=== PATIENT | female | born 1990 | race Caucasian/White ===

== ENCOUNTER 2016-05-24 02:20 | Inpatient (IN) | payer OTHER ==
[~2016-05-24] VITALS: Ht 175.3 cm; Wt 97.7 kg
[2016-05-24] MEDS ORDERED: LACTATED RINGER'S 1000ML 500 ML IV ONE (02:58)
[2016-05-24] MEDS ORDERED: LACTATED RINGER'S 1000ML 1,000 ML IV SCH ×2 (02:58→03:35)
[2016-05-24 03:15] VITALS: Ht 175.3 cm; Wt 97.7 kg
[2016-05-24] MEDS ORDERED: PENICILLIN G POTASSIUM IV 3 MU in DEXTROSE 5% 100ML 100 ML IV PRN (03:45)
[2016-05-24] MEDS ORDERED: PENICILLIN G POTASSIUM IV 6 MU in DEXTROSE 5% 250ML 250 ML IV ONE (03:45)
[2016-05-24] MEDS ORDERED: MAGNESIUM SULFATE 4GM / WTR 100ML IV ONE (03:50)
[2016-05-24 03:56] LABS: HEMATOCRIT 35.1 % (37-47); MEAN CELL VOLUME 96.7 fL (80-100); MEAN CORPUSCULAR HEMOGLOBIN 33.9 pg (25-34); MEAN PLATELET VOLUME 11.7 fL (7.4-10.4); PLATELET COUNT 155 K/uL (130-400); RED BLOOD COUNT 3.63 M/uL (4.2-5.4); WHITE BLOOD COUNT 6.13 K/uL (4.8-10.8)
[2016-05-24] MEDS ORDERED: MAGNESIUM SULFATE / WTR 1,000 ML IV SCH (04:15)
[2016-05-24 04:22] LABS: INR 0.9 (0.9-1.1); PARTIAL THROMBOPLASTIN RATIO 1.3; PROTHROMBIN TIME (PATIENT) 9.8 SECONDS (9.0-12.0)
[2016-05-24] MEDS ORDERED: BETAMETH SOD PHOS/ACETATE IA 6 MG/ML IM ONE (04:30)
[2016-05-24 04:54] LABS: CALCIUM 8.4 mg/dl (8.5-10.1); CREATININE 0.68 mg/dl (0.60-1.20); POTASSIUM 3.7 mmol/L (3.5-5.1)
[2016-05-24] MEDS ORDERED: BUPIVACAINE 0.25% 30 ML VIAL ONE (05:04)
[2016-05-24] MEDS ORDERED: FENTANYL 2MCG/ML ROPIV 1.25MG/ML 100ML BAG EPI ONE (05:04)
[2016-05-24] MEDS ORDERED: EpHEDrine SULFATE INJ 50 MG/ML AMP ONE (05:04)
[2016-05-24] MEDS ORDERED: FENTANYL CITRATE INJ 50 MCG/1 ML 2 ML VIAL ONE (05:05)
--- NOTE | 2016-05-24 05:33 | Medical Consult ---
Consultation Date of Consultation: May 24, 2016. Attending Physician: Katina Cano M.D. Reason for Consultation: Opiate addiction History of Present Illness Destiny Lauren is a 25 yo female with opiate addiction who presented to [facility] today in labor. She reportedly takes massive amounts of Percocet daily, though when quantified she reports over the last year she takes 4-5 oxycontin 30mg tablets per day, and more when it is available. She usually snorts this, and occasionally takes it by mouth. Last opiate use was the AM of 05/23. She also used cocaine yesterday, but reports that was the only time she has used cocaine. Her history is vague but she should be about 35+5 weeks . She reportedly had care at [facility]. It was attempted for the patient to be transferred to an external facility but there was no available transport. Medicine was consulted for opiate dependence for after she delivers. She is just received an epidural, and is receiving fentanyl through it. She reports feeling concerned that she is withdrawing from opiates. She reports she has chills and feels like she has a loose bowel movement. She denies any headache, feeling sweaty, or any other symptoms. She is occasionally having contractions. Past Medical/Surgical History PMHx: 1. Opiate addiction 2. 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 Social History Illicit substance use as above over the last 4 years on and off, but constantly over the last year prior to her . Denies any alcohol or tobacco use. Smoking Status: Unknown if Ever Smoked Allergies Coded Allergies: No Known Allergies (Unverified , 05/24/16) Current Inpatient Medications Current Inpatient Medications Medications (Trade) Dose Ordered Sig/Suzi Route Start Time Stop Time Status Last Admin Dose Admin Lactated Ringer's 1,000 ml @ 125 mls/hr Q8H IV 05/24/16 02:58 06/23/16 02:57 Lactated Ringer's 1,000 ml @ 125 mls/hr Q8H IV 05/24/16 03:35 05/26/16 03:34 05/24/16 03:35 125 MLS/HR Magnesium Sulfate 1,000 ml @ 50 mls/hr Q20H IV 05/24/16 04:15 06/23/16 04:14 Penicillin G Potassium/Dextrose (Penicillin G Potassium IV/D5 100ml) 106 ml @ 100 mls/hr Q4H PRN IV 05/24/16 03:45 05/26/16 03:44 Review of Systems A 10 point review of systems was completed and negative unless otherwise noted in HPI. Physical Exam VS - per EMR General Appearance: WD/WN, + mild distress Head: normocephalic, atraumatic Eyes: PERRL, + pertinent finding (midrange pupils.) ENT: hearing grossly normal Neck: supple, no JVD Respiratory/Chest: lungs clear, normal breath sounds, no respiratory distress Cardiovascular: regular rate, rhythm, no murmur, normal peripheral pulses Abdomen/GI: + pertinent finding (gravid) Neurologic/Psych: alert, normal mood/affect, oriented x 3 Skin: no rash Laboratory Results Last 24 Hours Test 05/24/16 00:00 05/24/16 03:17 05/24/16 03:35 05/24/16 04:04 Rubella IgG Antibody IMMUNE White Blood Count 6.13 K/uL Red Blood Count 3.63 M/uL Hemoglobin 12.3 g/dL Hematocrit 35.1 % Mean Corpuscular Volume 96.7 fL Mean Corpuscular Hemoglobin 33.9 pg Mean Corpuscular Hemoglobin Concent 35.0 g/dl RDW Standard Deviation 45.1 fL RDW Coefficient of Variation 13.3 % Platelet Count 155 K/uL Mean Platelet Volume 11.7 fL Prothrombin Time 9.8 SECONDS Prothromb Time International Ratio 0.9 Activated Partial Thromboplast Time 34.1 SECONDS Partial Thromboplastin Ratio 1.3 Sodium Level 141 mmol/L Potassium Level 3.7 mmol/L Chloride Level 107 mmol/L Carbon Dioxide Level 24 mmol/L Anion Gap 10.0 mmol/L Blood Urea Nitrogen 5 mg/dl Creatinine 0.68 mg/dl Est Creatinine Clear Calc Drug Dose 156.0 ml/min Estimated GFR () 139.9 Estimated GFR (Non- 120.7 BUN/Creatinine Ratio 7.0 Random Glucose 91 mg/dl Calcium Level 8.4 mg/dl Total Bilirubin 0.4 mg/dl Direct Bilirubin 0.1 mg/dl Aspartate Amino Transf (AST/SGOT) 16 U/L Alanine Aminotransferase (ALT/SGPT) 17 U/L Alkaline Phosphatase 179 U/L Total Protein 6.6 gm/dl Albumin 2.5 gm/dl Assessment & Plan Documented By: Mervin Byronmateuszinez 25 yo female in active labor, with opiate addiction - primarily with long acting oxycontin 4-5x per day. However, since she usually snorts this medication it is unable to be quantified into morphine equivalents, so post- this will likely need to be titrated. Recommendations: Urine drug screen and acetaminophen level. For long acting opiate medication, would start with oxycontin 20mg TID. For breakthrough symptoms/pain, would use oxycodone IR 5mg q4h PRN. We will make recommendations on adjustment of medications accordingly. Thank you for allowing us to participate in the care of this patient. We will continue to follow. Resident Physician Supervision Note: I was present with [Name of resident] during the history and exam. I discussed the case with the resident and agree with the findings and plan as documented in the note. Any exceptions or clarifications are listed here: Pt seen/examined We are requested to consult for opiate withdrawal as the pt stets she is currently symptomatic. She is in labor and had received an epidural prior to exam. She states that she snorts 4-5 20mg oxymorphone daily Plan As she is delivering we would recommend she receive opiates which can be tapered or substituted We will recommend oxymorphone 20mg TID in addition to oxy IR 5mg q4H PRN This can be titrated as needed Discussed with OBGYN attending Resident Tracking Resident Involvement: Resident Care Provided Care Provided: Adult Hospital Medicine
[2016-05-24] MEDS ORDERED: NALBUPHINE HCL INJ 10 MG/ML AMP IV PRN (05:45)
[2016-05-24] MEDS ORDERED: EpHEDrine SULFATE INJ 50 MG/ML AMP IV PRN (05:45)
[2016-05-24] MEDS ORDERED: LACTATED RINGER'S 1000ML 500 ML IV PRN (05:45)
[2016-05-24] MEDS ORDERED: ONDANSETRON INJ 2 MG/ML 2 ML VIAL IV PRN (05:45)
[2016-05-24] MEDS ORDERED: NALOXONE HCL INJ 0.4 MG/1 ML VIAL/CARP IV PRN (05:45)
[2016-05-24] MEDS ORDERED: DiphenhydrAMINE HCL 50 MG/ML VIAL IV PRN (05:45)
[2016-05-24] MEDS ORDERED: FENTANYL 2MCG/ML ROPIV 1.25MG/ML 100ML BAG EPI PRN (05:45)
[2016-05-24 06:53] LABS: BENZODIAZEPINE, URINE NEG (NEG); COCAINE,URINE POS (NEG); PHENCYCLIDINE, URINE NEG (NEG)
[2016-05-24] MEDS ORDERED: OXYTOCIN 30 UNITS/500ML NSS IV ONE (08:00)
[2016-05-24] MEDS ORDERED: LANOLIN OINT EXT PRN ×2 (08:45)
[2016-05-24] MEDS ORDERED: HYDROCORTISONE ACETATE 25 MG SUPP PR PRN (08:45)
[2016-05-24] MEDS ORDERED: SUPERCREAM 0.870 % 15GM JAR EXT PRN (08:45)
[2016-05-24] MEDS ORDERED: BENZOCAINE 20% AER SPR 82.5 GM CAN EXT PRN (08:45)
[2016-05-24] MEDS ORDERED: OXYTOCIN 30 UNITS/500ML NSS IV PRN (08:45)
[2016-05-24] MEDS: OXYCODONE HCL IR 5 MG TAB (IMMEDIATE RELEASE) PO PRN ×4 (09:55→21:05)
--- NOTE | 2016-05-24 10:08 | Anesthesia Procedure Note ---
Anesthesia Epidural Removal Nt Date & Time May 24, 2016 at 10:07 Vital Signs Pain Intensity: 8.0 Notes Mental Status: alert / awake / arousable, participated in evaluation Nausea / Vomiting: adequately controlled Pain: adequately controlled Airway Patency, RR, SpO2: stable & adequate BP & HR: stable & adequate Hydration State: stable & adequate Neuraxial Anesthesia: was administered Anesthetic Complications: no major complications apparent, pt satisfied with anesthetic care Epidural: removed without complications, with tip intact
--- NOTE | 2016-05-24 10:09 | DELIVERY SUMMARY ---
DATE OF OPERATION: 05/24/2016 DELIVERY SUMMARY DATE OF DELIVERY: 05/24/2016. PRE-DELIVERY DIAGNOSES: 1. 25-year-old G3,P1-1-0-1 at 35 weeks, 5 days based off of patient report of 22 week ultrasound. 2. labor. 3. History of multidrug abuse. 4. History of section x1 followed by successful vaginal delivery. 5. 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 POST DELIVERY DIAGNOSES: Same. PROCEDURE: Spontaneous vaginal delivery and repair of bilateral sulcal tears and right periurethral tear. SURGEON: Dr. Eve Brown. ESTIMATED BLOOD LOSS: 300 mL. FINDINGS: Viable male with Apgars of 1 at 1 minute, 2 at 5 minutes, 3 at 10 minutes, 6 at 15 minutes and 8 at 20 minutes. Weight is pending. HISTORY PRIOR TO DELIVERY: I took over care of patient at the time when she began to push. Per handoff report she is a 25-year-old G3,P1-1-0-1 @ 35 5/7 with an estimated date of delivery of 06/23/2016 who presented in spontaneous labor with minimal care. She presented with regular contractions and had reported snorting large amounts of Percocet, most recently used morning of delivery. Also noted that she used cocaine recently. Urine drug screen confirmed both cocaine and opioids positive on drug screen. The patient had reported that she had sought care at [facility] but overnight, our staff called the center and there were no records of her having received care there. Per patient report she had received an ultrasound at about 22 weeks of gestation and was told she was having a boy. That ultrasound gave her an estimated date of confinement of 06/23/2016. The patient reports a long-term history of narcotic abuse and cocaine use. Reports all inhalation, no history of IV drug use per patient. The patient's history was a full-term delivery in 2010 delivered by because her knuckle strap sewer told her she should not push which her recent eye surgery. In 2014 she delivered a 27 week demise vaginally. Overnight course of stay the patient had presented and was 3 cm dilated. Multiple attempts were made to transfer patient to a facility with a NICU however there was no transportation available and upon re-examination patient had made significant cervical change and due to advanced dilation was no longer a candidate for transport. DESCRIPTION OF DELIVERY: The patient progressed to complete with an epidural anesthesia. She was allowed to labor down to reduce the amount of time pushing. The patient then felt an overwhelming urge to push. She was examined and was found to be completely dilated with bulging membranes and 3+ station. An amnio hook was used to rupture membranes and a moderate amount of meconium stained amniotic fluid was present. The patient pushed and spontaneously vaginally delivered a viable male in the right occiput anterior position. The head delivered. No nuchal cord was noted. The anterior shoulder followed by the posterior shoulder were delivered. The umbilical cord was clamped and cut and the baby was handed off to the awaiting suture winder hand who was in attendance at delivery. A segment of cord was obtained to send cord gasses. Cord blood was obtained. The placenta delivered spontaneously intact with a 3-vessel cord. The uterus and vagina were swept of all clots and debris and Pitocin was started. The uterus clamped down and became firm. The vagina and perineum and cervix were inspected and bilateral vaginal sulcal tears were noted as well as a right periurethral laceration. A red rubber catheter was inserted to ensure location of urethral anatomy and all 3 lacerations were repaired in a running locked stitch of 3-0 Vicryl. Excellent hemostasis was observed and the patient is recovering from delivery in stable and good condition. heart tracing at time of delivery was category 1. The baby was taken to the nursery for further care under the guidance of the suture winder hand. I attest to the content of the Intraoperative Record and any orders documented therein. Any exceptions are noted below. DAVID
[2016-05-24 12:33] VITALS: BP 139/91; PULSE 52; TEMP 36.5; O2SAT 100
[2016-05-24] MEDS: OXYCODONE HCL 40 MG TABCR (OXYCONTIN) PO SCH (12:35)
[2016-05-24 15:30] VITALS: BP 125/78; PULSE 54; TEMP 36.9
[2016-05-24] MEDS: IBUPROFEN 600 MG TAB PO PRN ×2 (16:15→20:37)
--- NOTE | 2016-05-24 18:56 | Family Medicine Progress Note ---
Progress Note Date of Service May 24, 2016. Subjective Pt evaluation today including: conversation w/ patient, physical exam, chart review, lab review, review of studies Pain: denies pain PO Intake: adequate Voiding: no voiding problems Pt is a PPD 0. Pt reports she believes she is in opiate withdrawal. She is experiencing tremor, chills. Denies lacrimation, rhinorrhea, N/V, diarrhea. Pt was experiencing abdominal discomfort but no more than expected soon after . Constitutional: No chills, No fever Respiratory: No cough, No shortness of breath, No sputum, No wheezing Cardiovascular: No chest pain Abdomen: + pain (post ), No constipation, No diarrhea, No nausea, No vomiting Female : No dysuria, No urinary frequency Skin: No itch, No rash Medications Current Inpatient Medications Medications (Trade) Dose Ordered Sig/Suzi Route Start Time Stop Time Status Last Admin Dose Admin Lactated Ringer's 1,000 ml @ 125 mls/hr Q8H IV 05/24/16 02:58 06/23/16 02:57 Lactated Ringer's 1,000 ml @ 125 mls/hr Q8H IV 05/24/16 03:35 05/26/16 03:34 05/24/16 03:35 125 MLS/HR Magnesium Sulfate 1,000 ml @ 50 mls/hr Q20H IV 05/24/16 04:15 06/23/16 04:14 Penicillin G Potassium/Dextrose (Penicillin G Potassium IV/D5 100ml) 106 ml @ 100 mls/hr Q4H PRN IV 05/24/16 03:45 05/26/16 03:44 Fentanyl/ Ropivacaine (Fentanyl 2MCG/ Ml/Ropivacaine 1.25MG/ML) 100 ml PRN PRN EPI 05/24/16 05:45 05/25/16 05:44 05/24/16 07:07 100 ML Naloxone HCl 0.1 mg 0.1 mg UD PRN IV 05/24/16 05:45 05/25/16 05:44 Lactated Ringer's (Lr 1000ml) 500 ml @ 999 mls/hr Q31M PRN IV 05/24/16 05:45 05/25/16 05:44 Ephedrine Sulfate (EpHEDrine SULFATE INJ) 10 mg Q5M PRN IV 05/24/16 05:45 05/25/16 05:44 Diphenhydramine HCl (Benadryl Inj) 25 mg Q6H PRN IV 05/24/16 05:45 05/25/16 05:44 Ondansetron HCl (Zofran Inj) 4 mg Q6H PRN IV 05/24/16 05:45 05/25/16 05:44 Oxytocin (Pitocin IV) 30 units UD PRN IV 05/24/16 08:45 06/23/16 08:44 Benzocaine (Dermoplast Aero Spr) 1 appln PRN PRN EXT 05/24/16 08:45 06/23/16 08:44 05/24/16 13:51 1 APPLN Hydrocortisone Acetate (Anusol Hc Supp) 25 mg BID PRN [place] 05/24/16 08:45 06/23/16 08:44 Lanolin (Lanolin Oint) PRN PRN EXT 05/24/16 08:45 06/23/16 08:44 Ibuprofen (Motrin Tab) 600 mg Q4H PRN PO 05/24/16 08:45 06/23/16 08:44 05/24/16 16:15 600 MG Bisacodyl (Dulcolax Tab) 5 mg 20 PO 05/25/16 20:00 05/25/16 20:01 Bisacodyl (Dulcolax Supp) 10 mg DAILY PRN [place] 05/26/16 07:00 05/26/16 23:59 Docusate Sodium (coLACE CAP) 100 mg BID PO 05/24/16 20:00 06/23/16 19:59 Oxycodone HCl (Roxicodone Immediate Rel Tab) 5 mg Q4 PRN PO 05/24/16 09:15 06/07/16 09:14 05/24/16 18:14 5 MG Oxycodone HCl (Oxycontin Tab) 40 mg Q12H PO 05/24/16 12:15 06/07/16 12:14 05/24/16 12:35 40 MG Objective Vital Signs Date Time Temp Pulse Resp B/P Pulse Ox O2 Delivery O2 Flow Rate FiO2 05/24/16 15:30 Room Air 05/24/16 15:30 36.9 54 16 125/78 Room Air 05/24/16 12:33 36.5 52 16 139/91 100 Room Air Physical Exam General Appearance: WD/WN, + mild distress Eyes: normal inspection, PERRL, EOMI Neck: supple, no adenopathy Respiratory/Chest: chest non-tender, normal breath sounds, no respiratory distress Cardiovascular: regular rate, rhythm, no murmur Abdomen: normal bowel sounds, non tender, soft, + pertinent finding (uterine fundus 1 cm below umbilicus) Extremities: no calf tenderness, + pedal edema Neurologic/Psychiatric: alert Skin: normal color Laboratory Results Results Past 24 Hours Test 05/24/16 02:58 05/24/16 03:17 05/24/16 03:35 05/24/16 04:04 Range/Units Urine Opiates Screen POS NEG Urine Methadone, Qualitative NEG NEG Urine Barbiturates NEG NEG Urine Phencyclidine (PCP) Level NEG NEG Ur Amphetamine/Methamphetamine NEG NEG MDMA (Ecstasy) Screen NEG NEG Urine Benzodiazepines Screen NEG NEG Urine Cocaine Metabolite POS NEG Urine Marijuana (THC) NEG NEG Rubella IgG Antibody IMMUNE IMMUNE White Blood Count 6.13 4.8-10.8 K/uL Red Blood Count 3.63 4.2-5.4 M/uL Hemoglobin 12.3 12.0-16.0 g/dL Hematocrit 35.1 37-47 % Mean Corpuscular Volume 96.7 80-100 fL Mean Corpuscular Hemoglobin 33.9 25-34 pg Mean Corpuscular Hemoglobin Concent 35.0 32-36 g/dl RDW Standard Deviation 45.1 36.4-46.3 fL RDW Coefficient of Variation 13.3 11.5-14.5 % Platelet Count 155 130-400 K/uL Mean Platelet Volume 11.7 7.4-10.4 fL Prothrombin Time 9.8 9.0-12.0 SECONDS Prothromb Time International Ratio 0.9 0.9-1.1 Activated Partial Thromboplast Time 34.1 21.0-31.0 SECONDS Partial Thromboplastin Ratio 1.3 Sodium Level 141 136-145 mmol/L Potassium Level 3.7 3.5-5.1 mmol/L Chloride Level 107 98-107 mmol/L Carbon Dioxide Level 24 21-32 mmol/L Anion Gap 10.0 3-11 mmol/L Blood Urea Nitrogen 5 7-18 mg/dl Creatinine 0.68 0.60-1.20 mg/dl Est Creatinine Clear Calc Drug Dose 156.0 ml/min Estimated GFR () 139.9 Estimated GFR (Non- 120.7 BUN/Creatinine Ratio 7.0 10-20 Random Glucose 91 70-99 mg/dl Calcium Level 8.4 8.5-10.1 mg/dl Total Bilirubin 0.4 0.2-1 mg/dl Direct Bilirubin 0.1 0-0.2 mg/dl Aspartate Amino Transf (AST/SGOT) 16 15-37 U/L Alanine Aminotransferase (ALT/SGPT) 17 12-78 U/L Alkaline Phosphatase 179 45-117 U/L Total Protein 6.6 6.4-8.2 gm/dl Albumin 2.5 3.4-5.0 gm/dl Test 05/24/16 06:40 Range/Units Acetaminophen Level 5 10-30 ug/ml Hepatitis B Surface Antigen NEG NEG HIV (1&2) Ab and P24 Ag, 4th Gener NEG NEG Assessment and Plan 25 yo PPD 0 w/x hx of opiate dependence who initially presented in labor consulted for opiate withdrawal symptoms Opiate withdrawal recommendations : - Pharmacy unable to fill oxymorphone , recommend equivalent long acting Oxycodone sustained release 20 mg q12 - Continue PRN Oxycodone IR q4 prn - Encourage rehabilitation or methadone clinic post discharge Continued [facility] stay due to: multiple IV medications needed Discharge planning: home Resident Tracking Resident Involvement: Resident Care Provided Care Provided: Adult Hospital Medicine Reviewed: Pt Seen/Exam by CLAUDIA Santana Notes, Labs History Resident Physician Supervision Note: I interviewed and examined the patient. Discussed with Dr. Schwab and agree with findings and plan as documented in the note. Any exceptions or clarifications are listed here: No distress, no pain, no CP/SOB, no N/V/D. Pt's baby was life flighted to [facility] for respiratory failure. Pt reports she is going home tomorrow and has no plans for inpatient rehab at this time Vitals reviewed NAD, pleasant, not diaphoretic RRR no mgr nl S1S2 CTAB no wcr Abd soft, mild ttp over uterine fundus Ext 3+ pitting edema to thighs bilat Neuro DTRs 1+ throughout LEs, moving all extremities well A/P: 25 yo female with opioid abuse and dependence, here with delivery. CYS contacted and not sure if pt will be reunited with her child at this point and there is discussion of possible adoption. Discussed inpatient rehab and pt declines. She will look into outpatient programs once her mom comes to pick her up tomorrow (wants to d/w mom). I will NOT be Rxing any opioids upon discharge Documented By: Tawny Hoang
[2016-05-24 19:20] VITALS: BP 129/80; PULSE 77; TEMP 37; O2SAT 100
[2016-05-24] MEDS: DOCUSATE SODIUM 100 MG CAP PO SCH ×2 (20:00→20:36)
[2016-05-24 20:45] VITALS: BP 146/84; PULSE 57; TEMP 36.7; O2SAT 100
[2016-05-25 00:07] VITALS: BP 128/82; PULSE 64; TEMP 37.2; O2SAT 100
[2016-05-25] MEDS: OXYCODONE HCL 40 MG TABCR (OXYCONTIN) PO SCH ×2 (00:07→12:12)
[2016-05-25] MEDS: IBUPROFEN 600 MG TAB PO PRN ×3 (00:07→09:08)
[2016-05-25] MEDS: OXYCODONE HCL IR 5 MG TAB (IMMEDIATE RELEASE) PO PRN ×4 (01:13→13:21)
[2016-05-25 05:12] VITALS: BP 132/76; PULSE 54; TEMP 36.8; O2SAT 100
--- NOTE | 2016-05-25 06:46 | Progress Note ---
Subjective May 25, 2016. Subjective conversation w/ patient, physical exam Ambulation: ambulating normally Voiding: no voiding problems Passing Gas: Yes Diet Tolerance: Regular Diet Lochia: Small Feeding Type: Bottle Feeding Pain: 9/10 Vaginal Pain Review of Systems Constitutional: + chills, + fever Respiratory: No cough, No shortness of breath Cardiac: + chest pain Breast: No breast pain Abdomen: + pain (Cramping), No nausea, No vomiting Female : No dysuria Objective Vital Signs Date Time Temp Pulse Resp B/P Pulse Ox O2 Delivery O2 Flow Rate FiO2 05/25/16 05:12 36.8 54 24 132/76 100 Room Air 05/25/16 05:12 36.8 54 24 132/76 100 Room Air 05/25/16 00:07 37.2 64 20 128/82 100 Room Air 05/25/16 00:07 100 Room Air 05/25/16 00:07 100 Room Air 05/25/16 00:07 37.2 64 20 128/82 100 Room Air 05/24/16 20:45 36.7 57 24 146/84 100 Room Air 05/24/16 19:20 37.0 77 20 129/80 100 Room Air 05/24/16 19:20 37.0 77 18 129/80 100 Room Air 05/24/16 15:30 Room Air 05/24/16 15:30 36.9 54 16 125/78 Room Air 05/24/16 12:33 36.5 52 16 139/91 100 Room Air Physical Exam General Appearance: WELL-APPEARING, WD/WN, NO APPARENT DISTRESS Respiratory/Chest: lungs clear, normal breath sounds Cardiovascular: regular rate, rhythm, no gallop, no murmur Abdomen: non tender, soft Fundus: Firm, Relation to Umbilicus (1cm above umbilicus) Laboratory Results Last 24 Hours Test 05/25/16 04:44 Medications Current Inpatient Medications Medications (Trade) Dose Ordered Sig/Suzi Route Start Time Stop Time Status Last Admin Dose Admin Lactated Ringer's 1,000 ml @ 125 mls/hr Q8H IV 05/24/16 02:58 06/23/16 02:57 Lactated Ringer's 1,000 ml @ 125 mls/hr Q8H IV 05/24/16 03:35 05/26/16 03:34 05/24/16 03:35 125 MLS/HR Magnesium Sulfate 1,000 ml @ 50 mls/hr Q20H IV 05/24/16 04:15 06/23/16 04:14 Penicillin G Potassium/Dextrose (Penicillin G Potassium IV/D5 100ml) 106 ml @ 100 mls/hr Q4H PRN IV 05/24/16 03:45 05/26/16 03:44 Oxytocin (Pitocin IV) 30 units UD PRN IV 05/24/16 08:45 06/23/16 08:44 Benzocaine (Dermoplast Aero Spr) 1 appln PRN PRN EXT 05/24/16 08:45 06/23/16 08:44 05/24/16 13:51 1 APPLN Hydrocortisone Acetate (Anusol Hc Supp) 25 mg BID PRN [place] 05/24/16 08:45 06/23/16 08:44 Lanolin (Lanolin Oint) PRN PRN EXT 05/24/16 08:45 06/23/16 08:44 Ibuprofen (Motrin Tab) 600 mg Q4H PRN PO 05/24/16 08:45 06/23/16 08:44 05/25/16 05:05 600 MG Bisacodyl (Dulcolax Tab) 5 mg 20 PO 05/25/16 20:00 05/25/16 20:01 Bisacodyl (Dulcolax Supp) 10 mg DAILY PRN [place] 05/26/16 07:00 05/26/16 23:59 Docusate Sodium (coLACE CAP) 100 mg BID PO 05/24/16 20:00 06/23/16 19:59 Oxycodone HCl (Roxicodone Immediate Rel Tab) 5 mg Q4 PRN PO 05/24/16 09:15 06/07/16 09:14 05/25/16 05:05 5 MG Oxycodone HCl (Oxycontin Tab) 40 mg Q12H PO 05/24/16 12:15 06/07/16 12:14 05/25/16 00:07 40 MG Assessment and Plan Post- Day#: 1 Continue Routine Care: - Vital Signs reviewed and WNL (temp max 36.6) - Blood Type: O+, GBS- , Rubella Immune - Patient doing well clinically - Encourage Ambulation today - Tolerating PO diet well - Multiple complaints and pain, but patient appears to be doing very well and most likely complaints are 2/2 drug withdrawal. Despite complaints says shes feeling well enough to go home and wants us to discharge her first this am because her mother is coming to pick her up. She complains of a fever but has been afebrile. She complains of chest and abdominal pain but there is no tenderness to palpation and based on further questioning appears to be delivery related cramping. - Discharge this morning Resident Physician Supervision Note: I interviewed and examined the patient. Discussed with Dr. Conde and agree with findings and plan as documented in the note. Any exceptions or clarifications are listed here: [None] Documented By: Antwon Allen
--- NOTE | 2016-05-25 06:47 | Discharge Instructions ---
Discharge Instructions Admission Reason for Admission: Labor Contractions (Noel Conde MD) Discharge Discharge Diagnosis / Problem: Vaginal Delivery (Noel Conde MD) Discharge Goals Goal(s): Routine recovery after delivery (Noel Conde MD) Medications Continue Dispensed Medications: supercream, dermaplast, tucks, lansinoh (Noel Conde MD) Activity Recommendations Activity Limitations: per Instructions/Follow-up section . (Noel Conde MD) Instructions / Follow-Up Instructions / Follow-Up ACTIVITY RECOMMENDATIONS: * Gradual return to full activity over the next 2-3 weeks. * No lifting - nothing heavier than baby over the next 2-3 weeks. * Do not engage in vigorous exercise, sexual activity or sports until cleared by your physician. * Do not drive or operate any motorized equipment until cleared by your physician. * You may shower/bathe daily. MEDICATIONS: For discomfort or pain, you may use Acetaminophen (Tylenol), Ibuprofen (Advil), or Naproxen (Aleve) following the package directions. For constipation you may use Colace following the package directions. BREAST CARE: If you are not breast feeding: * Wear a supportive bra 24 hours a day for one to two weeks. * Avoid stimulating your breasts and nipples as much as possible during the first few weeks after delivery. * When taking a shower, have the warm water hit your back, not breasts. * When your breasts feel full, apply ice packs. Usually three to four times a day helps ease the discomfort. * Take a mild pain medication (Tylenol / Motrin) when you are uncomfortable. If breast feeding: * Use breast milk to lubricate nipples. Lansinoh cream may be used for sore nipples. You do not need to remove cream prior to breast feeding. If using a different brand of cream, check the label for directions regarding removal of cream prior to nursing. * Wear a supportive bra. * If having problems with breasts or breast feeding, call a [facility] consultant or your health care provider. EPISIOTOMY CARE: After delivery, if you have an episiotomy (stitches), the following steps will ease discomfort and aid healing. * For the first 24 hours after delivery, place ice packs next to your episiotomy to help reduce swelling. * After the first 24 hour-period, sitz baths, either portable or in the tub, are suggested. A shower with a shower arm sprayed over the episiotomy may be comforting. * Lenore care should be done after each voiding and bowel movement. Squirt warm water from a plastic bottle over the perineum (region of the body between the anus and urinary opening) and pat dry. * Use Dermoplast to ease discomfort. Shake container. Eleele directly over the episiotomy. Place a Tucks on a clean sanitary pad next to your episiotomy. SPECIAL CARE INSTRUCTIONS: When you are discharged from the hospital, it is important for you to follow the instructions listed below: * During the first week at home, you should be able to care for yourself and your baby. In addition, the usual light household activities are encouraged. * Limit your activities to the way you feel. Do not try to clean the house or move furniture. Be sensible. * If you actively engage in sports and have done so up until the time of your delivery, you may resume these activities as soon as you feel able. This may take up to one month or even longer. Use good judgment. * Continue to take your vitamins for at least six weeks after the of your baby. * Your diet need not be limited unless you were on a special diet before your delivery. Breast-feeding mothers need around 2500 calories per day and at least 64-80 ounces of fluid per day (8 to 10 glasses). * You should eat foods from the four major food groups. Crash diets or fad diets are to be avoided. Eating lean meats, fresh fruits and vegetables, low-fat dairy products, high fiber foods and a regular exercise program, will help you get back to your pre- weight without putting your health at risk. * Constipation is sometimes a problem after delivery. Take a mild laxative as needed. If breast feeding, Milk of Magnesia is acceptable to use. You may use a suppository or Fleets enema if no episiotomy. * A daily shower or tub bath is suggested. Be sure to thoroughly and gently dry the perineum. * A bloody vaginal discharge will usually continue until around four weeks post . A small amount of bleeding may continue for as long as six weeks. Vaginal discharge changes from the bright red bleeding after delivery to pink then brownish and finally yellowish-pink before becoming white and disappearing. * Bleeding may increase with activity. Your first period may come in 4-8 weeks. If you are breast feeding, your period may be delayed even longer. * [place] (sex) can begin whenever both you and your partner feel comfortable and do not have any form of genital infection. It is recommended that you wait at least six weeks for internal and external healing to occur. If you have questions, please talk to your health care practitioner. A condom should be used to prevent infection and . * Foreplay, gentle intercourse and lubrication is very important the first several times to prevent pain. A water-based lubricant such as K-Y jelly or Astroglide may be used. * If you have RH negative blood and your baby is RH positive, you will receive RHOGAM by injection prior to discharge. The nurse will give you a card to keep with you that has the date and place that you received RHOGAM after delivery. * During your care, you had a Rubella screen done to check for the presence of rubella antibodies in your blood. If your test was negative, you will receive a Rubella vaccine prior to discharge. This vaccine may cause a fever, soreness at the injection site and flu-like symptoms. If these symptoms persist, notify your health care practitioner. is not advised for one month after a Rubella vaccine. * Verbalizes understanding of car seat law as reviewed with patient nursing. * Car Seat hand-out given and reviewed with patient by nursing. * Shaken baby information reviewed with patient by nursing. Call you doctor if: * Heavy bleeding (saturating several pads an hour) or passing clots the size of your fist. * A fever >101 degrees F (38.3 degrees C) on two occasions four hours apart and /or chills. * Unusual pain in the pelvic or vaginal areas. * "Baby Blues" lasting longer than two weeks. If you have any questions or concerns, call your health care practitioner at . FOLLOW UP VISIT: * Please call the office at to schedule a 6 week examination. It is important you keep this appointment. It is important for you to make arrangements for either yearly or twice yearly check-ups thereafter. (Noel Conde MD) Current Hospital Diet Patient's current hospital diet: Regular OB Diet (Noel Conde MD) Discharge Diet Recommended Diet: Regular Diet (Noel Conde MD) Pending Studies Studies pending at discharge: no (Noel Conde MD) Medical Emergencies . Who to Call and When: Medical Emergencies: If at any time you feel your situation is an emergency, please call 911 immediately. . (Noel Conde MD) Non-Emergent Contact Non-Emergency issues call your: Furniture Manager . (Noel Conde MD) . "Provider Documentation" section prepared by Noel Conde. (Noel Conde MD) VTE Core Measure Inpt VTE Proph given/why not?: Treatment not indicated (Noel Conde MD)
[2016-05-25 07:14] LABS: HEMATOCRIT 25.8 % (37-47)
[2016-05-25] MEDS: DOCUSATE SODIUM 100 MG CAP PO SCH (08:00)
[2016-05-25 08:20] VITALS: BP 138/57; PULSE 57; TEMP 37; O2SAT 100
[2016-05-25 12:45] VITALS: BP 127/76; PULSE 76; TEMP 37; O2SAT 98
[2016-05-25 14:30] VITALS: BP_DIAS 76; PULSE 76; TEMP 37
--- NOTE | 2016-05-25 15:14 | Family Medicine Progress Note ---
Progress Note Date of Service May 25, 2016. Subjective Pt evaluation today including: conversation w/ patient, physical exam, lab review Pt is a . Patient complains of back pain at the site of epidural and abdomen pain. Denies shakes, chills, lacrimation, rhinorrhea, N/V, diarrhea. She states that she is feeling better than yesterday. Constitutional: No chills, No fever Respiratory: No cough, No shortness of breath, No wheezing Cardiovascular: No chest pain Abdomen: + pain (post ), No constipation, No diarrhea, No nausea, No vomiting Female : No dysuria, No hematuria Skin: No rash Objective Vital Signs Date Time Temp Pulse Resp B/P Pulse Ox O2 Delivery O2 Flow Rate FiO2 05/25/16 14:30 37.0 76 20 05/25/16 12:45 37.0 76 20 127/76 98 Room Air 05/25/16 08:20 Room Air 05/25/16 08:20 37.0 57 20 138/57 100 Room Air 05/25/16 05:12 36.8 54 24 132/76 100 Room Air 05/25/16 05:12 36.8 54 24 132/76 100 Room Air 05/25/16 00:07 37.2 64 20 128/82 100 Room Air 05/25/16 00:07 100 Room Air 05/25/16 00:07 100 Room Air 05/25/16 00:07 37.2 64 20 128/82 100 Room Air 05/24/16 20:45 36.7 57 24 146/84 100 Room Air 05/24/16 19:20 37.0 77 20 129/80 100 Room Air 05/24/16 19:20 37.0 77 18 129/80 100 Room Air 05/24/16 15:30 Room Air 05/24/16 15:30 36.9 54 16 125/78 Room Air Physical Exam General Appearance: no apparent distress Neck: supple Respiratory/Chest: chest non-tender, lungs clear, normal breath sounds, no respiratory distress Cardiovascular: regular rate, rhythm, no edema, no JVD, no murmur Abdomen: normal bowel sounds, non tender, soft Extremities: non-tender Neurologic/Psychiatric: alert, normal mood/affect, oriented x 3 Skin: normal color, warm/dry, no rash Laboratory Results Results Past 24 Hours Test 05/25/16 06:05 Range/Units Hemoglobin 9.0 12.0-16.0 g/dL Hematocrit 25.8 37-47 % Assessment and Plan This is a 25 yo w/ hx of opiate dependence who initially presented in labor consulted for opiate withdrawal symptoms. Opiate withdrawal recommendations : - Dr. Hoang spoke with complex case manager and patient was given information about methadone clinics. - CYS is also involved in the case - Encourage rehabilitation or methadone clinic post discharge Patient was stable to be discharge home today. Reviewed: Pt Seen/Exam by MeCLAUDIA Notes History Resident Physician Supervision Note: I was present with Dr. Hanna during the history and exam. I discussed the case with the resident and agree with the findings and plan as documented in the note. Any exceptions or clarifications are listed here: Pt feeling well. COntemplating methadone clinic after discharge Vitals reviewed NAD AAOx3 RRR no mgr CTAB no wcr Abd soft NT ND, uterine fundus U-1 Ext 2+ pitting edema to thighs bilat improved slightly from yesterday Skin: small 0.75 cm crusted skin crack left anterior tibia, no surrounding erythema A/P: 25 yo female here post from delivery with opioid dependence. Managed opioids while here but will not be giving opioids upon discharge. Encouraged abstinence and f/u with PCP, methadone clinic Documented By: Tawny Hoang
[2016-05-25] MEDS ORDERED: BISACODYL 5 MG TABEC PO SCH (20:00)
[2016-05-26] MEDS ORDERED: BISACODYL 10 MG SUPP PR PRN (07:00)
[2016-05-27 01:51] LABS: COCAINE, URINE 5270 NG/ML (CUTOFF=100); COD UR NEGATIVE NG/ML (CUTOFF=50); HYDROCOD UR NEGATIVE NG/ML (CUTOFF=50); HYDROMOR UR NEGATIVE NG/ML (CUTOFF=50); MORPHINE UR 192 NG/ML (CUTOFF=50); NORHYDROCODONE CONF UR NEGATIVE NG/ML (CUTOFF=50); OXYMORPH UR 775 NG/ML (CUTOFF=50)
--- NOTE | 2016-06-10 07:03 | DISCHARGE SUMMARY ---
ADMISSION DIAGNOSES: 1. A 25-year-old 3, para 1-1-0-1 at 35 weeks 5 days. 2. labor. 3. History of multidrug abuse. 4. History of section x1. 5. 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 DISCHARGE DIAGNOSES: Same. PROCEDURE: Spontaneous vaginal delivery and repair of bilateral sulcal tears and right periurethral tear. CONDITION ON DISCHARGE: Stable and good. COURSE OF STAY: The patient presented with limited care in spontaneous labor and vaginally delivered a viable male with Apgars of 1 at 1 minute, 2 at 5 minutes, 3 at 10 minutes, 6 at 15 minutes and 8 at 20 minutes. The mother tolerated delivery well and was discharged home on day #1. Due to patient's medical history and lack of care and potential delivery with gestational dating based off of a a 22-week ultrasound attempts were made overnight to transfer patient to a medical center with a level-3 NICU, however, transport by air was not available and ground transport was considered; however, patient was making cervical change and concern was that patient would possibly deliver en route, so she was kept at [facility]. After delivery the baby was transported to [facility] for further care in the intensive care unit per orders and recommendations of the print developer at [facility]. INSTRUCTIONS ON DISCHARGE: DIET: Regular. MEDICATIONS: Motrin and Tylenol. ACTIVITY: Pelvic rest. FOLLOWUP: In the office in 6 weeks.
== END 2016-05-25 14:30 | disposition home or self-care (01) | DRG 775 ==
LOC: C.OPB 02:20 → C.LD 02:20 → C.OPB 03:38 → C.LD 03:38 → C.OBG 12:22
PROVIDERS: ADMIT Obstetrics & Gynecology; ATTEND Obstetrics & Gynecology
PROC: 10E0XZZ Delivery of Products of Conception, External Approach (ICD-10-PCS; principal; 2016-05-24)
PROC: 0UQG0ZZ Repair Vagina, Open Approach (ICD-10-PCS; principal; 2016-05-24)
PROC: 0TQD0ZZ Repair Urethra, Open Approach (ICD-10-PCS; principal; 2016-05-24)
DX: O60.14X0 Preterm labor third trimester with preterm delivery third trimester, not applicable or unspecified (principal); O99.324 Drug use complicating childbirth; F11.23 Opioid dependence with withdrawal; O71.4 Obstetric high vaginal laceration alone; F14.10 Cocaine abuse, uncomplicated; O71.82 Other specified trauma to perineum and vulva; O77.0 Labor and delivery complicated by meconium in amniotic fluid; Z3A.35 35 weeks gestation of pregnancy; Z37.0 Single live birth; Z87.51 Personal history of pre-term labor; Z87.59 Personal history of other complications of pregnancy, childbirth and the puerperium; Z86.69 Personal history of other diseases of the nervous system and sense organs